=== PATIENT | female | born 1965 | race Caucasian/White ===

== ENCOUNTER 2017-05-04 14:56 | Emergency (ER) | payer OTHER ==
[~2017-05-04] VITALS: Ht 170.2 cm; Wt 90.7 kg
[~2017-05-04 14:56] MED LIST: ASPI81TA; METF-371
[2017-05-04 15:12] VITALS: BP 115/78
== END 2017-05-04 16:22 | disposition home or self-care (01) ==
LOC: EDBD 14:56 → ER 14:56
DX: B37.9 Candidiasis, unspecified (principal); E11.9 Type 2 diabetes mellitus without complications; Z79.82 Long term (current) use of aspirin; F17.210 Nicotine dependence, cigarettes, uncomplicated

== ENCOUNTER 2017-05-19 18:36 | Emergency (ER) | payer OTHER ==
[~2017-05-19] VITALS: Ht 170.2 cm; Wt 87.5 kg
[2017-05-19 20:15] VITALS: BP 124/71
[2017-05-19] MEDS ORDERED: FLUCONAZOLE 100 MG TAB PO ONE (23:00)
== END 2017-05-19 23:50 | disposition home or self-care (01) ==
LOC: ER 18:48
DX: B37.9 Candidiasis, unspecified (principal); L30.4 Erythema intertrigo; E11.9 Type 2 diabetes mellitus without complications; Z79.84 Long term (current) use of oral hypoglycemic drugs
CPT/HCPCS: 82962

== ENCOUNTER 2019-02-22 12:34 | Emergency (ER) | payer OTHER ==
[~2019-02-22] VITALS: Ht 160 cm; Wt 72.6 kg
[2019-02-22 14:48] LABS: Basophils # (auto) 0 uL; Eosinophils # (auto) 0 uL; Eosinophils % (auto) 0.5 % (0.0-7.0); Lymphocytes % (auto) 24.4 % (10.0-50.0)
[2019-02-22 14:51] LABS: Basophils % (auto) 0.5 % (0.0-2.0); Hematocrit 45.3 % (36.0-46.0); Hemoglobin 15.8 g/dL (12.2-16.2); Lymphocytes # (auto) 1.7 uL; Mean Corpuscular Hemoglobin 35.7 pg (28.0-32.0); Mean Corpuscular Hgb Conc. 34.8 g/dL (32.0-36.0); Mean Corpuscular Volume 102.5 fL (80.0-100.0); Monocytes # (auto) 0.7 uL; Monocytes % (auto) 9.4 % (0.0-12.0); Neutrophils # (auto) 4.5 uL; Neutrophils % (auto) 65.2 % (37.0-80.0); Nucleated Red Blood Cells % 0.1 %; Platelet Count (auto) 153 10^3/uL (140-450); Red Blood Cells 4.41 10^6/uL (4.0-5.20)
[2019-02-22 15:02] LABS: Albumin 3.3 g/dL (3.4-5.0); Anion Gap 6 (5-15); Blood Urea Nitrogen 13 mg/dL (7-18); Carbon Dioxide 31 mmol/L (21-32); Chloride 105 mmol/L (98-107); Magnesium 2.1 mg/dL (1.6-2.6); Potassium 3.4 mmol/L (3.5-5.1); Sodium 142 mmol/L (136-145)
[2019-02-22 15:10] LABS: Alanine Aminotransferase 18 U/L (13-56); Alkaline Phosphatase 87 U/L (45-117); Aspartate Aminotransferase 8 U/L (15-37); BUN/Creatinine Ratio 23.2; Bilirubin, Total 0.6 mg/dL (0.2-1.0); GFR African American 145 mL/min; GFR Non-African American 119 mL/min; Glucose 111 mg/dL (74-106); Total Protein 7.6 g/dL (6.4-8.2)
[2019-02-22] MEDS ORDERED: ALBUTEROL SULF 2.5 MG/0.5ML(0.5%) NEB SOLN NEB ONE ×2 (16:45→18:45)
[2019-02-22] MEDS ORDERED: IPRATROPIUM BROM 0.5 MG/2.5ML INH SOL NEB ONE ×2 (16:45→18:45)
[2019-02-22] MEDS ORDERED: methylPREDNISolone SOD SUCC 125 MG/2 ML VL IV ONE (17:15)
[2019-02-22] MEDS ORDERED: AZITHROMYCIN 500MG/ 250ML 250 ML IV ONE (17:15)
[2019-02-22] MEDS ORDERED: POTASSIUM EFFERVESENT TAB 25 MEQ PO ONE (18:00)
[2019-02-22 19:53] VITALS: BP 121/75
[2019-02-22 20:58] LABS: Urine Bacteria NONE SEEN /hpf (None Seen); Urine Blood Negative /uL (Negative); Urine Specific Gravity 1.013 (1.001-1.035); Urine WBC 4 /hpf (0 - 5)
== END 2019-02-22 20:45 | disposition home or self-care (01) ==
LOC: EDUNIT# 12:34 → EDBD 12:34 → ER 12:34
DX: J45.901 Unspecified asthma with (acute) exacerbation (principal); D75.89 Other specified diseases of blood and blood-forming organs; E87.6 Hypokalemia; E11.9 Type 2 diabetes mellitus without complications; F17.210 Nicotine dependence, cigarettes, uncomplicated
CPT/HCPCS: 36415; 71046; 80053; 81001; 83735; 83880; 84484; 85025; 93005; 94640; 96365; 96366; 96375; 99284; J0456; J2930; J7611; J7644

== ENCOUNTER 2020-07-15 15:23 | Emergency (ER) | payer OTHER ==
[~2020-07-15] VITALS: Ht 170.2 cm; Wt 70.8 kg
[2020-07-15 18:50] VITALS: BP 129/61
== END 2020-07-15 20:19 | disposition home or self-care (01) ==
LOC: ER 15:23
DX: L03.115 Cellulitis of right lower limb (principal); F17.210 Nicotine dependence, cigarettes, uncomplicated

== ENCOUNTER 2021-01-09 11:30 | Observation (INO) | payer OTHER ==
[~2021-01-09] VITALS: Ht 175.3 cm; Wt 92.2 kg
[2021-01-09] MEDS ORDERED: ACETAMINOPHEN 500 MG TAB PO ONE (12:00)
[2021-01-09 12:14] LABS: Basophils # (auto) 0 10 ^3/uL (0-0.2); Eosinophils # (auto) 0.1 10 ^3/uL (0-0.8); Hemoglobin 15.5 g/dL (12.2-16.2); Lymphocytes # (auto) 1.2 10 ^3/uL (0.4-5.4); Mean Corpuscular Hgb Conc. 35.1 g/dL (32.0-36.0); Monocytes # (auto) 0.4 10 ^3/uL (0-1.3)
[2021-01-09 12:16] LABS: Basophils % (auto) 0.5 % (0.0-2.0); Eosinophils % (auto) 1.2 % (0.0-7.0); Hematocrit 44.2 % (36.0-46.0); Lymphocytes % (auto) 25.3 % (10.0-50.0); Mean Corpuscular Hemoglobin 36.7 pg (28.0-32.0); Mean Corpuscular Volume 104.6 fL (80.0-100.0); Monocytes % (auto) 7.1 % (0.0-12.0); Neutrophils # (auto) 3.2 10 ^3/uL (1.6-8.6); Neutrophils % (auto) 65.9 % (37.0-80.0); Nucleated Red Blood Cells % 0.1 %; Platelet Count (auto) 120 10^3/uL (140-450); Red Blood Cells 4.22 10^6/uL (4.0-5.20); Red Cell Distribution Width 15.1 % (11.8-14.3); White Blood Cell 4.9 10^3/uL (4.4-10.8)
[2021-01-09 13:03] LABS: Albumin 3.1 g/dL (3.4-5.0); Calcium 8.9 mg/dL (8.5-10.1); Potassium 3.6 mmol/L (3.5-5.1)
[2021-01-09 13:06] LABS: BUN/Creatinine Ratio 11.5; Total Protein 6.7 g/dL (6.4-8.2)
[2021-01-09 13:27] LABS: Lactic Acid w/Reflex 2.8 mmol/L (0.4-2.0)
[2021-01-09] MEDS ORDERED: SODIUM CHLORIDE 0.9% 1,000 ML IV ONE (14:15)
[2021-01-09] MEDS: PIPERACILLIN-TAZOB 3.375GM 100 ML IV ONE ×2 (14:15→16:14)
[2021-01-09] MEDS ORDERED: ACYCLOVIR SOD 50MG/ML 800 MG in SODIUM CHL 0.9% 250 ML IV ONE (14:15)
[2021-01-09] MEDS ORDERED: FLUORESCEIN SOD OPTH TEST STRIP ONE (15:13)
[2021-01-09] MEDS ORDERED: TETRACAINE HCL 0.5% OPTH(EYE) SOLN 4ML ONE (15:14)
[2021-01-09] MEDS ORDERED: TETANUS-DIPTH-ACEL PERTUSSIS 0.5ML SYR Tdap IM ONE (15:15)
[2021-01-09] MEDS ORDERED: ACETAMINOPHEN 500 MG TAB PO PRN (15:30)
[2021-01-09] MEDS ORDERED: LORazepam 0.5 MG TAB PO PRN (15:30)
[2021-01-09] MEDS ORDERED: LABETALOL HCL 5 MG/ML 4ML SYRINGE IV PRN (15:30)
[2021-01-09] MEDS ORDERED: ACYCLOVIR 10MG/KG Q8HR PER RX 0 ML IV SCH (15:30)
[2021-01-09] MEDS ORDERED: DOCUSATE CALCIUM 240 MG CAP PO PRN (15:30)
[2021-01-09] MEDS ORDERED: ALBUTEROL SULF 2.5 MG/0.5ML(0.5%) NEB SOLN NEB PRN (15:30)
[2021-01-09] MEDS ORDERED: MORPHINE SULF INJ 2 MG/ML SYRINGE 1ML IV PRN (15:30)
[2021-01-09] MEDS ORDERED: ONDANSETRON HCL 4 MG/2 ML VIAL IV PRN (15:30)
[2021-01-09] MEDS ORDERED: NITROGLYCERIN 0.4 MG SL TAB SL PRN (15:30)
[2021-01-09] MEDS ORDERED: DEXTROSE (50%) 50ML SYRG IV PRN (15:30)
[2021-01-09] MEDS: ACCU-CHEK COMFORT CURVE STRIP VI SCH ×2 (16:31→21:19)
[2021-01-09] MEDS: InsuLIN REG 1unit/0.01ml Soln (100units/ml) SC SCH ×2 (16:34→20:00)
[2021-01-09 17:02] VITALS: BP 145/80
[2021-01-09] MEDS: MORPHINE SULFATE 4 MG/ML SYR/VIAL IV PRN (18:26)
[2021-01-09 18:32] VITALS: BP 158/79
[2021-01-09 21:23] LABS: Urine Bacteria FEW /hpf (None Seen); Urine Blood TRACE /uL (Negative); Urine Mucus FEW (None Seen); Urine Specific Gravity 1.024 (1.001-1.035); Urine WBC 3 /hpf (0 - 5)
[2021-01-09] MEDS: ACYCLOVIR SOD 50MG/ML 750 MG in SODIUM CHL 0.9% 250 ML IV SCH (21:49)
[2021-01-09 22:00] VITALS: BP 139/80
[2021-01-09] MEDS ORDERED: INSULIN LANTUS (GLARGINE) 1 /0.01ml (100units/ml) SC SCH (22:00)
[2021-01-10] MEDS: PIPERACILLIN-TAZOB 3.375GM 100 ML IV SCH ×3 (00:44→13:23)
[2021-01-10] MEDS: ACCU-CHEK COMFORT CURVE STRIP VI SCH ×4 (00:44→13:24)
[2021-01-10] MEDS: MORPHINE SULFATE 4 MG/ML SYR/VIAL IV PRN (01:06)
[2021-01-10] MEDS: InsuLIN REG 1unit/0.01ml Soln (100units/ml) SC SCH ×4 (04:00→12:00)
[2021-01-10 05:00] VITALS: BP 96/71
[2021-01-10] MEDS: ACYCLOVIR SOD 50MG/ML 750 MG in SODIUM CHL 0.9% 250 ML IV SCH ×2 (05:02→14:00)
[2021-01-10 05:29] LABS: Basophils # (auto) 0 10 ^3/uL (0-0.2); Basophils % (auto) 0.4 % (0.0-2.0); Eosinophils # (auto) 0.1 10 ^3/uL (0-0.8); Eosinophils % (auto) 1.4 % (0.0-7.0); Hematocrit 40.2 % (36.0-46.0); Hemoglobin 14.2 g/dL (12.2-16.2); Lymphocytes # (auto) 1.6 10 ^3/uL (0.4-5.4); Lymphocytes % (auto) 30.4 % (10.0-50.0); Mean Corpuscular Hgb Conc. 35.3 g/dL (32.0-36.0); Monocytes # (auto) 0.4 10 ^3/uL (0-1.3); Monocytes % (auto) 7.4 % (0.0-12.0); Neutrophils # (auto) 3.2 10 ^3/uL (1.6-8.6); Neutrophils % (auto) 60.4 % (37.0-80.0); Nucleated Red Blood Cells % 0.1 %; Platelet Count (auto) 120 10^3/uL (140-450); Red Blood Cells 3.83 10^6/uL (4.0-5.20); White Blood Cell 5.3 10^3/uL (4.4-10.8)
[2021-01-10 05:45] LABS: Potassium 4.4 mmol/L (3.5-5.1)
[2021-01-10 05:51] LABS: Albumin 2.9 g/dL (3.4-5.0); BUN/Creatinine Ratio 15.3; Calcium 8.5 mg/dL (8.5-10.1); Total Protein 6.4 g/dL (6.4-8.2)
[2021-01-10 09:00] VITALS: BP 117/63
[2021-01-10] MEDS ORDERED: PANTOPRAZOLE 40 MG TAB PO SCH (10:00)
[2021-01-10] MEDS ORDERED: ENOXAPARIN SOD 40 MG/0.4 ML SYRINGE SC SCH (10:00)
[2021-01-10 13:00] VITALS: BP 110/56
[2021-01-10 15:06] VITALS: BP 110/56
== END 2021-01-10 16:20 | disposition home or self-care (01) ==
LOC: ER 11:30 → EDBD 11:30 → TELE-CENTR 11:31 → INTOOBSV 11:31
PROVIDERS: ADMIT Family Medicine; ATTEND Family Medicine
DX: L03.211 Cellulitis of face (principal); Z20.822 Contact with and (suspected) exposure to COVID-19; H10.9 Unspecified conjunctivitis; H00.035 Abscess of left lower eyelid; H00.034 Abscess of left upper eyelid; E11.65 Type 2 diabetes mellitus with hyperglycemia; I10 Essential (primary) hypertension; B02.30 Zoster ocular disease, unspecified; R07.89 Other chest pain; J45.909 Unspecified asthma, uncomplicated; F17.210 Nicotine dependence, cigarettes, uncomplicated; Z23 Encounter for immunization; Z98.890 Other specified postprocedural states; Z79.82 Long term (current) use of aspirin; Z79.4 Long term (current) use of insulin
CPT/HCPCS: 36415; 70486; 71045; 80053; 81001; 82150; 82962; 83036; 83605; 83880; 84443; 85025; 87040; 87086; 87426; 90471; 90715; 96365; 96366; 96367; 96372; 96375; 96376; 99284; G0378; J0133; J1650; J2270; J2405; J2543; J7050; U0003